=== PATIENT | female | born 1995 | race Caucasian/White ===

== ENCOUNTER 2020-12-31 10:20 | Emergency (ER) | payer SELFPAY ==
[~2020-12-31] VITALS: Ht 175.3 cm; Wt 136.1 kg
[2020-12-31] MEDS ORDERED: KETOROLAC TROMETHAMINE 30 MG/ML VIAL IM ONE (11:45)
== END 2020-12-31 12:35 | disposition home or self-care (01) ==
LOC: ER 10:54
DX: S83.92XA Sprain of unspecified site of left knee, initial encounter (principal); W01.0XXA Fall on same level from slipping, tripping and stumbling without subsequent striking against object, initial encounter; Y93.01 Activity, walking, marching and hiking
CPT/HCPCS: 73562; 99282; J1885

== ENCOUNTER 2022-03-24 16:49 | Emergency (ER) | payer MEDICARE ==
[~2022-03-24] VITALS: Ht 172.7 cm; Wt 136.1 kg
[2022-03-24] MEDS ORDERED: NAPROSYN500 MG PO (17:23)
[2022-03-24] MEDS ORDERED: PENICILLIN V P500 MG PO (17:23)
== END 2022-03-24 17:33 | disposition home or self-care (01) ==
LOC: ER 16:56
DX: K02.9 Dental caries, unspecified (principal)
CPT/HCPCS: 99282

== ENCOUNTER 2024-08-15 19:39 | Emergency (ER) | payer SELFPAY ==
[~2024-08-15 19:39] MED LIST: AMOXICILLIN500 MG PO; IBUPROFEN600 MG PO; NAPROSYN500 MG PO; PENICILLIN V P500 MG PO
== END 2024-08-15 20:30 | disposition left against medical advice (07) ==
LOC: ER 19:56
DX: R06.02 Shortness of breath (principal)